=== PATIENT | male | born 1990 | race Caucasian/White ===

== ENCOUNTER 2017-10-27 20:33 | Emergency (ER) | payer MEDICAID ==
[2017-10-27] MEDS ORDERED: Amoxicillin/Clavulanate K 875-125 MG Tab PO ONE (20:48)
[2017-10-27] MEDS ORDERED: Acetaminophen/HYDROcodone 325-5 MG Tab PO ONE (20:48)
--- NOTE | 2017-10-27 20:50 | EDM.PDOC ---
ED HPI GENERAL MEDICAL PROBLEM - General Stated Complaint: TOOTHACHE Time Seen by Provider: 10/27/17 20:41 Source of Information: Reports: Patient, Family History Limitations: Reports: No Limitations - History of Present Illness INITIAL COMMENTS - FREE TEXT/NARRATIVE: 27 y.o.w.m came with his SO to the ed due to dental pain for a few days. He took motrin without improvement. Pt smokes daily. No other acute medical issues. BP 147/67 pulse 78 RR 20 Pulse ox 100% on RA temp 36.7 Onset Date: 10/22/17 Onset Time: 08:00 Duration: Day(s):, Getting Worse Location: Reports: Face Quality: Reports: Ache, Burning, Pressure Severity: Moderate Improves with: Reports: Medication Worsens with: Reports: Movement Context: Reports: Other (poor dentitin, tobacco use) Associated Symptoms: Reports: No Other Symptoms left side tooth Pain Score (Numeric/FACES): 10 - Related Data Allergies Allergy/AdvReac Type Severity Reaction Status Date / Time No Known Allergies Allergy Verified 05/12/14 15:44 Home Meds: Home Meds Acetaminophen/HYDROcodone [Admire 325-5 MG] 1 tab PO Q6H PRN #4 tablet 10/27/17 [ Rx] Amoxicillin/Potassium Clav [Augmentin 875-125 Tablet] 1 each PO BID #20 tablet 10/27/17 [Rx] Past Medical History - Past Health History Medical/Surgical History: Denies Medical/Surgical History ED ROS ENT - Review of Systems Review Of Systems: See Below Constitutional: Reports: No Symptoms HEENT: Reports: Dental Pain Respiratory: Reports: No Symptoms Cardiovascular: Reports: No Symptoms Endocrine: Reports: No Symptoms GI/Abdominal: Reports: No Symptoms : Reports: No Symptoms Musculoskeletal: Reports: No Symptoms Skin: Reports: No Symptoms Neurological: Reports: No Symptoms Psychiatric: Reports: No Symptoms Hematologic/Lymphatic: Reports: No Symptoms Immunologic: Reports: No Symptoms ED EXAM, ENT - Physical Exam Exam: See Below Exam Limited By: No Limitations General Appearance: Alert, WD/WN, No Apparent Distress Eye Exam: Bilateral Eye: Normal Inspection Ears: Normal External Exam Nose: Normal Inspection, Normal Mucousa Mouth/Throat: Normal Lips, Dental Pain, Dental Tenderness, Gum Swelling Head: Atraumatic, Normocephalic Neck: Normal Inspection, Supple, Non-Tender, Full Range of Motion Respiratory/Chest: No Respiratory Distress, Lungs Clear, Normal Breath Sounds, No Accessory Muscle Use, Chest Non-Tender Cardiovascular: Normal Peripheral Pulses, Regular Rate, Rhythm, No Edema, No JVD , No Murmur GI/Abdominal: Normal Bowel Sounds, Soft, Non-Tender, No Distention, No Abnormal Bruit, No Mass, Pelvis Stable (Male) Exam: Deferred Rectal (Males) Exam: Deferred Back: Normal Inspection, Full Range of Motion Extremities: Normal Inspection Neurological: Alert, Oriented, CN II-XII Intact, Normal Cognition, Normal Gait Psychiatric: Normal Affect Skin: Warm, Dry, Intact, Normal Color, No Rash Lymphatic: No Adenopathy Course - Vital Signs Text/Narrative:: 27 y.o.w.m came with his SO to the ed due to dental pain for a few days. He took motrin without improvement. Pt smokes daily. No other acute medical issues. BP 147/67 pulse 78 RR 20 Pulse ox 100% on RA temp 36.7 PE: Poor dentition, gingivitis Impression: Gingivitis, poor dentition, decay of left lower 3rd molar Tx: Abx, Admire Reexam: Improved Plan: D/C with instructions Last Recorded V/S: Last Vital Signs Temp 36.8 C 10/27/17 20:41 Pulse 72 10/27/17 20:41 Resp 16 10/27/17 20:41 BP 140/93 H 10/27/17 20:41 Pulse Ox 99 10/27/17 20:41 - Orders/Labs/Meds Meds: Medications Discontinued Medications Generic Name Dose Route Start Last Admin Trade Name Freq PRN Reason Stop Dose Admin Hydrocodone Bitart/Acetaminophen 1 tab 10/27/17 20:48 10/27/17 21:17 Admire 325-5 Mg PO 10/27/17 20:49 1 tab ONETIME ONE Administration Amoxicillin/Clavulanate Potassium 1 tab 10/27/17 20:48 10/27/17 21:17 Augmentin 875 Mg/125 Mg PO 10/27/17 20:49 1 tab ONETIME ONE Administration Departure - Departure Time of Disposition: 20:51 Disposition: Home, Self-Care 01 Condition: Good Clinical Impression: Gingivitis, Poor dentition, Toothache - Discharge Information Prescriptions: Acetaminophen/HYDROcodone [Admire 325-5 MG] 1 tab PO Q6H PRN #4 tablet PRN Reason: for severe pain only Amoxicillin/Potassium Clav [Augmentin 875-125 Tablet] 1 each PO BID #20 tablet Instructions: Acetaminophen; Hydrocodone tablets or capsules, Gingivitis, Easy- to-Read, Amoxicillin; Clarithromycin; Lansoprazole tablets and capsules Referrals: PCP,None [Primary Care Provider] - Forms: ED Department Discharge Additional Instructions: Please quit tobacco use Please take Augmentin and Admire as recommended, please f /u with a dentist A.S.A.P Please come back if your symptoms get worse acutely
== END 2017-10-27 21:26 | disposition home or self-care (01) ==
LOC: FB.ED 20:33
DX: K05.10 Chronic gingivitis, plaque induced (principal); K08.9 Disorder of teeth and supporting structures, unspecified; K02.9 Dental caries, unspecified
CPT/HCPCS: 99282; A9270